=== PATIENT | male | born 1955 | race Caucasian/White ===

== ENCOUNTER → 2020-06-15 | Emergency (ER) | payer OTHER ==
[~2020-06-15] VITALS: Ht 188 cm; Wt 54.4 kg
== END | disposition left against medical advice (07) ==
LOC: ER 18:43
DX: S00.83XA Contusion of other part of head, initial encounter (principal); S60.221A Contusion of right hand, initial encounter; Y04.2XXA Assault by strike against or bumped into by another person, initial encounter; Y93.89 Activity, other specified; Y92.89 Other specified places as the place of occurrence of the external cause; Y99.8 Other external cause status

== ENCOUNTER 2023-09-03 11:35 | Emergency (ER) | payer OTHER ==
[~2023-09-03] VITALS: Ht 180.3 cm; Wt 73.9 kg
[2023-09-03] MEDS ORDERED: DEXAMETHASONE SODIUM PHOSPHATE 4 MG/ML VIAL IM STA (14:07)
== END 2023-09-03 14:35 | disposition home or self-care (01) ==
LOC: ER
DX: M54.9 Dorsalgia, unspecified (principal); Z88.6 Allergy status to analgesic agent

== ENCOUNTER 2024-08-25 09:30 | Inpatient (IN) | payer OTHER ==
[~2024-08-25] VITALS: Ht 180.3 cm; Wt 72.6 kg
[~2024-08-25 09:30] MED LIST: ALPRAZOLAM XR1 MG; CLONAZEPAM1 MG
[2024-08-25 10:47] LABS: PH,URINE 5.5 (5.0-8.0); URINE APPEARANCE Clear; URINE BILIRRUBIN Negative (NEGATIVE); URINE BLOOD Negative; URINE COLOR Yellow; URINE GLUCOSE Negative (NEGATIVE); URINE KETONE Negative (NEGATIVE); URINE LEUKOCYTE Negative; URINE NITRATE Negative; URINE PROTEIN Negative (NEGATIVE)
[2024-08-25 10:52] LABS: URINE BACTERIA 13.4 uL (0.0-1933); URINE WBC 3.6 uL (0.0-23.2)
[2024-08-25 10:57] LABS: HEMOGLOBIN 16.1 g/dL (13-16.00); MEAN CELL VOLUME 87.1 fL (80.0-100.00); MEAN CORPUSCULAR HEMOGLOBIN 29.9 pg (27.00-32.0); MEAN CORPUSCULAR HGB CONC 34.3 g/dl (32.0-36.0); PLATELET COUNT 164 K/uL (150-450); RED BLOOD COUNT 5.39 M/uL (4.00-6.00); RED CELL DISTRIBUTION WIDTH 13.2 % (11.5-14.5)
[2024-08-25 11:07] LABS: PARTIAL THROMBOPLASTIN TIME 29.7 SECONDS (22.0-34.0); PROTHROMBIN TIME 10.9 SECONDS (9.0-11.5)
[2024-08-25] MEDS ORDERED: TRAMADOL HCL E100 M1 (11:07)
[2024-08-25 11:11] VITALS: BP 152/88
[2024-08-25 11:41] LABS: URINE CAST 0.29 uL (0.0-1.40); URINE EPITHELIAL CELLS 1.2 uL (0.0-38.8); URINE RBC 1.9 uL (0.0-20.8)
[2024-08-25 11:48] LABS: ALBUMIN 4.3 gm/dL (3.4-5.0); BILIRUBIN TOTAL 0.97 mg/dL (0.3-1.2); CALCIUM 9.9 mg/dL (8.5-10.1); CREATININE SERUM 1.3 mg/dL (0.70-1.30); GFR 54.73; GLOBULINA 3.5 G/DL (2.4-3.5); POTASSIUM 4.91 mEq/L (3.5-5.1); TOTAL PROTEIN 7.8 gm/dL (6.4-8.2); TSH 1.92 uIU/mL (0.358-3.74)
[2024-08-25 12:21] LABS: RH POSITIVE
[2024-08-28] MEDS ORDERED: BUPIVACAINE HCL/PF 0.25% 30ML VIAL InF ONE (13:30)
[2024-08-28] MEDS ORDERED: LIDOCAINE HCL 1%/EPINEPHRINE 20ML VIAL IJ ONE (13:30)
[2024-08-28] MEDS ORDERED: METRONIDAZOLE/SODIUM CHLORIDE 500 MG/100 ML PIGGYBACK IV SCH (13:30)
[2024-08-28] MEDS ORDERED: CEFTRIAXONE SODIUM 2,000 MG VIAL IV SCH (13:30)
[2024-08-28] MEDS ORDERED: MORPHINE SULFATE 4 MG/ML CARTRIDGE IV PRN (16:15)
[2024-08-28] MEDS ORDERED: RINGERS SOLUTION,LACTATED 1,000 ML IV SCH (16:15)
[2024-08-28] MEDS ORDERED: ONDANSETRON HCL 2 MG/ML VIAL IV PRN (16:15)
[2024-08-28] MEDS ORDERED: OxyCODONE HCL 5 MG TABLET (ROXICODONE) PO PRN (16:30)
[2024-08-28] MEDS ORDERED: POLYETHYLENE GLYCOL 3350 17 GM BLIST.PACK PO SCH (17:00)
[2024-08-28] MEDS ORDERED: GABAPENTIN 300 MG CAPSULE PO SCH (17:00)
[2024-08-28] MEDS ORDERED: MORPHINE SULFATE 4 MG/ML VIAL IV ONE ×2 (17:05→20:30)
[2024-08-28] MEDS ORDERED: ACETAMINOPHEN 500 MG GEL..CAP PO SCH (18:00)
[2024-08-28 20:00] LABS: HEMATOCRIT 43.8 % (39.0-48.0); HEMOGLOBIN 14.5 g/dL (13-16.00); MEAN CELL VOLUME 87.8 fL (80.0-100.00); MEAN CORPUSCULAR HEMOGLOBIN 29.1 pg (27.00-32.0); MEAN CORPUSCULAR HGB CONC 33.1 g/dl (32.0-36.0); PLATELET COUNT 162 K/uL (150-450); RED BLOOD COUNT 4.98 M/uL (4.00-6.00); RED CELL DISTRIBUTION WIDTH 12.9 % (11.5-14.5)
[2024-08-28 20:39] LABS: ALBUMIN 3.4 gm/dL (3.4-5.0); CREATININE SERUM 1.33 mg/dL (0.70-1.30); GFR 53.31; MAGNESIUM 1.6 mg/dL (1.8-2.4); POTASSIUM 4.12 mEq/L (3.5-5.1)
[2024-08-28 20:42] LABS: PHOSPHOROUS 1.4 mg/dL (2.5-4.9)
[2024-08-28 21:00] VITALS: BP 127/67; O2SAT 99
[2024-08-28] MEDS ORDERED: CLONAZEPAM 1 MG TABLET PO SCH (21:00)
[2024-08-28] MEDS ORDERED: FAMOTIDINE/PF 20 MG/2 ML VIAL IV PUSH SCH (21:00)
[2024-08-28] MEDS ORDERED: ALPRAzolam 1 MG TABLET PO SCH (21:00)
[2024-08-28] MEDS ORDERED: SIMETHICONE 125 MG CAPSULE PO SCH (21:00)
[2024-08-28] MEDS ORDERED: POTASSIUM PHOS,M-BASIC-D-BASIC 3 MM/ML VIAL IV ONE ×2 (21:15)
[2024-08-29] VITALS: BP 137/63; O2SAT 99
[2024-08-29 07:27] LABS: HEMATOCRIT 42.2 % (39.0-48.0); HEMOGLOBIN 13.9 g/dL (13-16.00); MEAN CELL VOLUME 87.9 fL (80.0-100.00); PLATELET COUNT 135 K/uL (150-450); RED CELL DISTRIBUTION WIDTH 12.8 % (11.5-14.5)
[2024-08-29 08:00] VITALS: BP 100/60; O2SAT 97
[2024-08-29] MEDS ORDERED: NAPH,MB-DB/K PH,MBDB 1 PKT PACKET PO STA (08:18)
[2024-08-29 08:19] LABS: ALBUMIN 3.2 gm/dL (3.4-5.0); CALCIUM 8.6 mg/dL (8.5-10.1); CREATININE SERUM 1.22 mg/dL (0.70-1.30); GFR 58.9; MAGNESIUM 1.8 mg/dL (1.8-2.4); PHOSPHOROUS 3.5 mg/dL (2.5-4.9); POTASSIUM 4.49 mEq/L (3.5-5.1)
[2024-08-29] MEDS ORDERED: ONDANSETRON HCL 2 MG/ML VIAL IV STA (08:25)
[2024-08-29] MEDS ORDERED: PANTOPRAZOLE SODIUM 40 MG/VIAL VIAL IV STA (08:26)
[2024-08-29] MEDS ORDERED: POTASSIUM PHOS,M-BASIC-D-BASIC 15 MM in 0.9 % SODIUM CHLORIDE 250 ML IV NR (08:30)
[2024-08-29] MEDS ORDERED: MULTIVIT INFUSN,ADULT 4,VIT K 10 ML VIAL IV SCH (09:00)
[2024-08-29] MEDS ORDERED: FAMOtidine 20 MG TABLET PO SCH (09:00)
[2024-08-29] MEDS ORDERED: PANTOPRAZOLE SODIUM 40 MG/VIAL VIAL IV SCH (09:00)
[2024-08-29] MEDS ORDERED: FOLIC ACID 1 MG TABLET PO SCH (09:00)
[2024-08-29] MEDS ORDERED: MAGNESIUM CHLORIDE 70 MG TABLET.DR PO SCH (09:00)
[2024-08-29] MEDS ORDERED: LORazepam 0.5 MG TABLET PO SCH ×2 (09:00→12:00)
[2024-08-29] MEDS ORDERED: LACTOBACILLUS ACIDOPHILUS 1 CAP CAP PO SCH (09:00)
[2024-08-29] MEDS ORDERED: THIAMINE HCL 100 MG TABLET PO SCH (09:00)
[2024-08-29] MEDS ORDERED: MAGNESIUM SULFATE IN WATER 2 GM/50 ML PIGGYBAG IV NR (10:15)
[2024-08-29] MEDS ORDERED: NAPH,MB-DB/K PH,MBDB 1 PKT PACKET PO SCH (13:00)
[2024-08-29 16:00] VITALS: BP 114/66; O2SAT 97
[2024-08-29] MEDS ORDERED: ENOXAPARIN SODIUM 40 MG/0.4 ML SYRINGE SUBCUTANEO SCH (17:00)
[2024-08-30 00:10] VITALS: BP 128/79; O2SAT 98
[2024-08-30 06:49] LABS: HEMATOCRIT 41.2 % (39.0-48.0); HEMOGLOBIN 14.3 g/dL (13-16.00); MEAN CORPUSCULAR HEMOGLOBIN 30.3 pg (27.00-32.0); MEAN CORPUSCULAR HGB CONC 34.8 g/dl (32.0-36.0); PLATELET COUNT 155 K/uL (150-450); RED BLOOD COUNT 4.73 M/uL (4.00-6.00)
[2024-08-30 07:09] LABS: ALBUMIN 3.4 gm/dL (3.4-5.0); CALCIUM 8.7 mg/dL (8.5-10.1); CREATININE SERUM 1.21 mg/dL (0.70-1.30); GFR 59.46; MAGNESIUM 2.1 mg/dL (1.8-2.4); PHOSPHOROUS 2.7 mg/dL (2.5-4.9); POTASSIUM 4.31 mEq/L (3.5-5.1)
[2024-08-30 08:28] VITALS: BP 149/65; O2SAT 96
[2024-08-30] MEDS ORDERED: POTASSIUM PHOS,M-BASIC-D-BASIC 15 MM in 0.9 % SODIUM CHLORIDE 250 ML IV NR (09:30)
[2024-08-30] MEDS ORDERED: DOCUSATE SODIUM 100MG CAP PO SCH (12:00)
[2024-08-30] MEDS ORDERED: NAPH,MB-DB/K PH,MBDB 1 PKT PACKET PO STA (12:32)
== END 2024-08-30 14:10 | disposition home or self-care (01) | DRG 331 ==
LOC: SURH 08-28 08:10 → O/R 08-28 08:10 → SURH 08-28 09:30 → O/R 08-28 13:48 → SURH 08-28 21:07
PROVIDERS: ADMIT Colon & Rectal Surgery; ATTEND Colon & Rectal Surgery
PROC: 07BC4ZZ Excision of Pelvis Lymphatic, Percutaneous Endoscopic Approach (ICD-10-PCS; 2024-08-28)
PROC: 0DBP4ZZ Excision of Rectum, Percutaneous Endoscopic Approach (ICD-10-PCS; 2024-08-28)
PROC: 0DJD8ZZ Inspection of Lower Intestinal Tract, Via Natural or Artificial Opening Endoscopic (ICD-10-PCS; 2024-08-28)
PROC: 0DTN4ZZ Resection of Sigmoid Colon, Percutaneous Endoscopic Approach (ICD-10-PCS; principal; 2024-08-28 07:00)
DX: C19 Malignant neoplasm of rectosigmoid junction (principal); R59.0 Localized enlarged lymph nodes